=== PATIENT | female | born 1975 | race Two or more races ===

== ENCOUNTER 2024-06-26 01:01 | Emergency (ER) | payer OTHER ==
[~2024-06-26] VITALS: Ht 172.7 cm; Wt 71.4 kg
[2024-06-26 03:00] VITALS: BP 139/81; TEMP 97.3
[2024-06-26 03:19] VITALS: PULSE 60; RESP 16; O2SAT 100
== END 2024-06-26 05:09 | disposition home or self-care (01) ==
LOC: ER 01:01
DX: S16.1XXA Strain of muscle, fascia and tendon at neck level, initial encounter (principal); S39.012A Strain of muscle, fascia and tendon of lower back, initial encounter; S40.022A Contusion of left upper arm, initial encounter; H92.01 Otalgia, right ear; V89.2XXA Person injured in unspecified motor-vehicle accident, traffic, initial encounter; Y93.89 Activity, other specified; Y92.89 Other specified places as the place of occurrence of the external cause; Y99.8 Other external cause status
CPT/HCPCS: 72040; 72100